=== PATIENT | male | born 1945 | race Caucasian/White ===

== ENCOUNTER 2017-07-10 09:33 | Emergency (ER) | payer MEDICARE ==
[2017-07-10 10:25] VITALS: BP 159/89
--- NOTE | 2017-07-10 11:59 | UC ---
General HPI - HPI Summary HPI Summary: 1. patient bit by a tick, of in less than 24 hours. but site looks infected. 2. cut cutting plywood, board kicked back and skin tear to left forearm, and scrap accross abdomen. - History of Current Complaint Chief Complaint: UCLaceration Stated Complaint: ARM LAC Time Seen by Provider: 07/10/17 11:37 Hx Obtained From: Patient Onset/Duration: Sudden Onset, Lasting Hours Timing: Constant Onset Severity: Moderate - Allergy/Home Medications Allergies/Adverse Reactions: Allergies Allergy/AdvReac Type Severity Reaction Status Date / Time seasonal allergies Allergy Eyes Uncoded 07/10/17 10:19 Itchy/Swollen/Red/Watery PMH/Surg Hx/FS Hx/Imm Hx Previously Healthy: Yes - Surgical History Surgical History: Yes Surgery Procedure, Year, and Place: 2002 benign neck tumor. Sinus surgery 2016 - Family History Known Family History: Positive: Hypertension, Diabetes - Social History Alcohol Use: Occasionally Substance Use Type: None Smoking Status (MU): Former Smoker When Did the Patient Quit Smoking/Using Tobacco: 40 years ago - Immunization History Most Recent Tetanus Shot: 2 months ago Review of Systems Constitutional: Negative Skin: Other - abrasion and skin tear Eyes: Negative ENT: Negative Respiratory: Negative Cardiovascular: Negative Gastrointestinal: Negative Genitourinary: Negative Motor: Negative Neurovascular: Negative Musculoskeletal: Negative Neurological: Negative Psychological: Negative Is Patient Immunocompromised?: No All Other Systems Reviewed And Are Negative: Yes Physical Exam Triage Information Reviewed: Yes Appearance: No Pain Distress, Well-Nourished, Pain Distress Vital Signs: Initial Vital Signs Temp 98.9 F 07/10/17 10:20 Pulse 86 07/10/17 10:20 Resp 20 07/10/17 10:20 BP 159/89 07/10/17 10:20 Vital Signs Reviewed: Yes Eye Exam: Normal ENT Exam: Normal Dental Exam: Normal Neck exam: Normal Respiratory Exam: Normal Respiratory: Positive: Chest non-tender, Lungs clear, Normal breath sounds Cardiovascular Exam: Normal Cardiovascular: Positive: RRR, No Murmur, Pulses Normal Abdominal Exam: Normal Abdomen Description: Positive: Nontender, No Organomegaly, Soft Bowel Sounds: Positive: Present Musculoskeletal Exam: Normal Musculoskeletal: Positive: Strength Intact, ROM Intact, No Edema Neurological Exam: Normal Neurological: Positive: Alert, Muscle Tone Normal Psychological Exam: Normal Skin: Positive: Other - infected bug bite on upper right thigh large skin tear to left forearm scrape accross abdomen Course/Dx - Course Course Of Treatment: hx obtained, exam performed ,meds reviewed, cleansed, skinned trimmed, surgical guaze applied, dressed with pressure dressing. - Differential Dx - Multi-Symptom Provider Diagnoses: large skin tear left forearm. folliculitis Discharge - Discharge Plan Condition: Stable Disposition: HOME Prescriptions: Cephalexin CAP* [Keflex CAP*] 500 mg PO BID #[id number] cap Patient Education Materials: Skin Tear (ED) Referrals: Orin Navarro MD [Primary Care Provider] - Additional Instructions: 1. Keep the dressing in place, clean dry and intact for 48 hours, then remove and change dressing to non stick dressing, you can use some neosporin for 3 days after dexter, then let it dry. 2. take the medication as prescribed. 3. Wash the abdominal scrape with warm soapy water daily. 4. Follow up with any sign of infection
== END 2017-07-10 12:35 | disposition home or self-care (01) ==
LOC: UCCORT 09:33
DX: S51.812A Laceration without foreign body of left forearm, initial encounter (principal); W20.8XXA Other cause of strike by thrown, projected or falling object, initial encounter; Y93.9 Activity, unspecified; Y92.9 Unspecified place or not applicable; L73.9 Follicular disorder, unspecified; Z87.891 Personal history of nicotine dependence
CPT/HCPCS: 99212; G0463